=== PATIENT | male | born 1970 | race Caucasian/White ===

== ENCOUNTER 2017-01-07 04:22 | Emergency (ER) | payer OTHER ==
[~2017-01-07] VITALS: Ht 188 cm; Wt 68.0 kg
[2017-01-07 04:25] VITALS: BP 126/82; PULSE 80; RESP 18; TEMP 98.3; O2SAT 97
[2017-01-07 04:29] VITALS: RESP 16; O2SAT 96
--- NOTE | 2017-01-07 04:44 | PD ---
HPI Chief Complaint: Syncope/Near-Syncope Time Seen by Provider: 04:24 Travel History International Travel<30 days: No Contact w/Intl Traveler<30days: No Traveled to known affect area: No History of Present Illness HPI The patient's 46. He is here due to syncope which occurred in the waiting room as he was bringing the family member of a different patient to the ER. Patient reports feeling lightheaded and then passing out. Staff notes the patient lost consciousness spelled forward and struck his head against a computer monitor. He woke up a second or 2 later and then lost consciousness again. Each period of LOC lasted a few seconds only. No seizure like activity observed. No fecal/ urinary incontinence. Pt states today was a normal day for him. He denies hx of medical disease or usage of medication. PFSH Past Medical History Medical History: Denies Significant Hx Diminished Hearing: No Past Surgical History Surgical History: No Previous Surgery Social History Alcohol Use: Yes Tobacco Use: No (never) Substance Use: No Allergies-Medications (Allergen,Severity, Reaction): Coded Allergies: No Known Allergies (Unverified , 01/07/17) Reported Meds & Prescriptions Reported Meds & Active Scripts Active Clotrimazole Anti-Fungal Topical (Clotrimazole) 1% Cream 1 Applic TOPICAL BID 30 Days Review of Systems Except as stated in HPI: all other systems reviewed are Neg Physical Exam Narrative GENERAL: 46 yo M, WNWD, NAD SKIN: Warm and dry. Tinea rash about the groin and perirectal distribution. RECTAL: No hemorrhoid. No mass. Brown stool. Guaiac negative. HEAD: Atraumatic. Normocephalic. EYES: Pupils equal and round. No scleral icterus. No injection or drainage. ENT: No nasal bleeding or discharge. Mucous membranes pink and moist. NECK: Trachea midline. No JVD. CARDIOVASCULAR: Regular rate and rhythm. RESPIRATORY: No accessory muscle use. Clear to auscultation. Breath sounds equal bilaterally. GASTROINTESTINAL: Abdomen soft, non-tender, nondistended. Hepatic and splenic margins not palpable. MUSCULOSKELETAL: Extremities without clubbing, cyanosis, or edema. No obvious deformities. NEUROLOGICAL: Awake and alert. No obvious cranial nerve deficits. Motor grossly within normal limits. Five out of 5 muscle strength in the arms and legs. Normal speech. PSYCHIATRIC: Appropriate mood and affect; insight and judgment normal. Data Data Last Documented VS Vital Signs Date Time Temp Pulse Resp B/P Pulse Ox O2 Delivery O2 Flow Rate FiO2 01/07/17 04:29 16 96 Room Air 01/07/17 04:25 98.3 80 126/82 VS reviewed Orders Electrocardiogram (01/07/17 04:24) Basic Metabolic Panel (Bmp) (01/07/17 04:24) Complete Blood Count With Diff (01/07/17 04:24) Magnesium (Mg) (01/07/17 04:24) Ckmb (Isoenzyme) Profile (01/07/17 04:24) Troponin I (01/07/17 04:24) Blood Glucose (01/07/17 04:24) Ecg Monitoring (01/07/17 04:24) Iv Access Insert/Monitor (01/07/17 04:24) Oximetry (01/07/17 04:24) Drug Screen, Random Urine (01/07/17 04:24) Alcohol (Ethanol) (01/07/17 04:24) Salicylates (Aspirin) (01/07/17 04:24) Tylenol (Acetaminophen) (01/07/17 04:24) CKMB (01/07/17 04:20) CKMB% (01/07/17 04:20) Magnesium Sulfate 1 Gm Premix (Magnesium (01/07/17 05:30) Potassium Chloride (Kcl) (01/07/17 05:30) Sodium Chlor 0.9% 1000 Ml Inj (Ns 1000 M (01/07/17 05:30) Lorazepam Inj (Ativan Inj) (01/07/17 06:00) Labs Laboratory Tests Test 01/07/17 04:20 White Blood Count 4.6 TH/MM3 Red Blood Count 3.88 MIL/MM3 Hemoglobin 11.3 GM/DL Hematocrit 35.4 % Mean Corpuscular Volume 91.3 FL Mean Corpuscular Hemoglobin 29.2 PG Mean Corpuscular Hemoglobin 32.0 % Concent Red Cell Distribution Width 20.3 % Platelet Count 77 TH/MM3 Mean Platelet Volume 7.6 FL Neutrophils (%) (Auto) 40.1 % Lymphocytes (%) (Auto) 52.6 % Monocytes (%) (Auto) 5.2 % Eosinophils (%) (Auto) 1.0 % Basophils (%) (Auto) 1.1 % Neutrophils # (Auto) 1.8 TH/MM3 Lymphocytes # (Auto) 2.4 TH/MM3 Monocytes # (Auto) 0.2 TH/MM3 Eosinophils # (Auto) 0.0 TH/MM3 Basophils # (Auto) 0.1 TH/MM3 CBC Comment AUTO DIFF Differential Comment AUTO DIFF CONFIRMED Platelet Estimate LOW Platelet Morphology Comment NORMAL Sodium Level 144 MEQ/L Potassium Level 3.4 MEQ/L Chloride Level 104 MEQ/L Carbon Dioxide Level 30.4 MEQ/L Anion Gap 10 MEQ/L Blood Urea Nitrogen 10 MG/DL Creatinine 0.96 MG/DL Estimat Glomerular Filtration 85 ML/MIN Rate Random Glucose 92 MG/DL Calcium Level 8.6 MG/DL Magnesium Level 1.3 MG/DL Total Creatine Kinase 144 U/L Creatine Kinase MB 4.2 NG/ML Troponin I LESS THAN 0.02 NG/ML Salicylates Level LESS THAN 1.7 MG/DL Acetaminophen Level LESS THAN 2.0 MCG/ML Ethyl Alcohol Level 316 MG/DL MDM Medical Decision Making Medical Screen Exam Complete: Yes Emergency Medical Condition: Yes Medical Record Reviewed: Yes Differential Diagnosis NSTEMI, unstable angina, coronary vasospasm, PE, PTX, aortic dissection, pericarditis, myocarditis, endocarditis, PNA, esophageal disease, aneurysm, musculoskeletal etiologies, anxiety, cocaine/sympathomimetic abuse Narrative Course EKG: sinus rate 74, normal axis/intervals, no pre-excitation morphology CBC & BMP Diagram 01/07/17 04:20 Mg 1.3 Guaiac negative stool. Tn < 0.02 EtOH 316 Reassessment at 550AM the patient is resting comfortably and feels better, is alert and in no distress. The patients results and examination findings were discussed. The repeat examination is unremarkable and benign. The history, exam , diagnostic testing, and current condition do not suggest any significant pathology to warrant further testing, continued ED treatment, admission, or surgical evaluation at this point. The vital signs have been stable. The patient does not have uncontrollable pain, intractable vomiting, or other significant symptoms. The patient's condition is stable and appropriate for discharge. The patient will pursue further outpatient evaluation with a primary care physician or other designated or consulting physician as indicated in the discharge instructions. The patient expressed understanding and was agreeable with this plan. [facility] Point of Care Internal Pos. & Neg. Controls: Passed Fecal Specimen Occult Blood: Negative Diagnosis Primary Impression: Alcohol intoxication Qualified Code: F10.929 - Alcohol intoxication, with unspecified complication Additional Impressions: Syncope and collapse Hypokalemia Hypomagnesemia Rash Referrals: Primary Care Physician 2 days Additional Instructions: You have a choice when it comes to health care, and we are glad that you chose [facility]. Hopefully, we have met your expectations on today's visit. You are welcome to return to [facility] at any time, as we are committed to meeting the health care needs of our community. Med/Other Pt SpecificInfo: Prescription(s) given, No Change to Meds Scripts Clotrimazole Topical (Clotrimazole Anti-Fungal Topical)1% Cream1 Applic TOPICAL BID 30 Days Ref 0 Prov:Sergio Hanna MD 01/07/17 Disposition: 01 DISCHARGE HOME Condition: Stable Sergio Hanna MD Jan 07, 2017 04:43
[2017-01-07 04:53] LABS: AUTOMATED NEUTROPHIL # 1.8 TH/MM3 (1.8-7.7); BASOPHIL # 0.1 TH/MM3 (0-0.2); BASOPHIL % 1.1 % (0.0-2.0); HEMATOCRIT 35.4 % (39.0-51.0); LYMPH % 52.6 % (9.0-44.0); LYMPHOCYTE # 2.4 TH/MM3 (1.0-4.8); MEAN CELL VOLUME 91.3 FL (80.0-100.0); MEAN CORPUSCULAR HEMOGLOBIN 29.2 PG (27.0-34.0); MONO % 5.2 % (0.0-8.0); NEUT % 40.1 % (16.0-70.0); PLATELET COUNT 77 TH/MM3 (150-450); RED BLOOD COUNT 3.88 MIL/MM3 (4.50-5.90); RED CELL DISTRIBUTION WIDTH 20.3 % (11.6-17.2); WHITE BLOOD COUNT 4.6 TH/MM3 (4.0-11.0)
[2017-01-07 05:00] LABS: HEMO FLAGS AUTO DIFF
[2017-01-07 05:16] LABS: ACETAMINOPHEN LESS THAN 2.0 MCG/ML (10.0-30.0); ANION GAP 10 MEQ/L (5-15); BICARBONATE 30.4 MEQ/L (21.0-32.0); BLOOD UREA NITROGEN 10 MG/DL (7-18); CHLORIDE 104 MEQ/L (98-107); GLOMERULAR FILTRATION RATE 85 ML/MIN (>89); MAGNESIUM 1.3 MG/DL (1.5-2.5); POTASSIUM 3.4 MEQ/L (3.5-5.1); SODIUM (NA) 144 MEQ/L (136-145)
[2017-01-07 05:19] LABS: CREATINE KINASE 144 U/L (39-308)
[2017-01-07] MEDS ORDERED: MAGNESIUM SULFATE 1 GM PREMIX 100 ML IV ONE (05:30)
[2017-01-07] MEDS ORDERED: SODIUM CHLOR 0.9% 1000 ML INJ 1,000 ML IV ONE (05:30)
[2017-01-07] MEDS ORDERED: POTASSIUM CHLORIDE 20 MEQ CONTROLLED RELEASE TAB PO ONE (05:30)
[2017-01-07 05:31] LABS: PLATELET ESTIMATE SMEAR LOW (NORMAL); PLATELET MORPHOLOGY NORMAL (NORMAL); SCAN/DIFF AUTO DIFF CONFIRMED
[2017-01-07 05:39] LABS: CKMB 4.2 NG/ML (0.5-3.6)
[2017-01-07] MEDS ORDERED: CLOT1CRE6 TOPICAL (05:47)
[2017-01-07] MEDS ORDERED: LORazepam 2 MG/ML VIAL IV PUSH ONE (06:00)
--- NOTE | 2017-01-07 15:01 | EKG ---
Date Performed: 01/07/2017 Time Performed: 04:24:41 PTAGE: 46 years EKG: Sinus rhythm NORMAL ECG NO PREVIOUS TRACING DOCTOR: Eben Heart Interpretating Date/Time 01/07/2017 14:56:58
== END 2017-01-07 07:00 | disposition home or self-care (01) ==
LOC: NEPC 04:22
DX: F10.929 Alcohol use, unspecified with intoxication, unspecified (principal); R55 Syncope and collapse; E87.6 Hypokalemia; E83.42 Hypomagnesemia; R21 Rash and other nonspecific skin eruption
CPT/HCPCS: 80048; 80307; 82550; 82552; 83735; 84484; 85025; 93005; 96374; 96375; 99284; J2060; J3475; J7030